=== PATIENT | male | born 1990 | race African-American/Black ===

== ENCOUNTER 2016-12-22 17:14 | Emergency (ER) | payer OTHER ==
[~2016-12-22] VITALS: Ht 180.3 cm; Wt 77.1 kg
[2016-12-22 20:05] LABS: URINE SOURCE CLEAN CATCH
[2016-12-22 20:16] LABS: URINE APPEARANCE CLEAR; URINE BILIRUBIN NEG (NEG); URINE BLOOD NEG (NEG); URINE COLOR YELLOW; URINE GLUCOSE NEG (NEG); URINE KETONE NEG (NEG); URINE LEUKOCYTE ESTERASE NEG (NEG); URINE NITRATE NEG (NEG); URINE PH 5.5 (5-8); URINE PROTEIN NEG (NEG); URINE SPECIFIC GRAVITY 1.028 (1.003-1.035)
[2016-12-22 20:20] LABS: CULTURE INDICATED? NO
[2016-12-25 10:21] LABS: CHLAMYDIA TRACH Not Detected (Not Detected); N GONOR Not Detected (Not Detected)
== END 2016-12-22 19:53 | disposition home or self-care (01) ==
LOC: CED 17:14 → CFTX 17:14 → CED 19:26 → CFTX 19:53
PROVIDERS: Nurse Practitioner Family
DX: Z20.2 Contact with and (suspected) exposure to infections with a predominantly sexual mode of transmission (principal); F17.210 Nicotine dependence, cigarettes, uncomplicated
CPT/HCPCS: 81003; 87491; 87591; 99283